=== PATIENT | female | born 1990 | race Caucasian/White ===

== ENCOUNTER 2017-11-20 11:48 | Inpatient (IN) | payer OTHER ==
[2017-11-20 12:22] LABS: ADD MAN DIFF? NO
[2017-11-20 12:26] LABS: BASOPHILS % 0.2 % (0.0-2.0); EOSINOPHILS # 0.2 10^3/ul (0.0-0.5); HEMATOCRIT 35.9 % (37.0-47.0); HEMOGLOBIN 12.2 g/dl (12.0-16.0); LYMPHOCYTES # 2.2 10^3/ul (0.8-2.9); LYMPHOCYTES % 23.1 % (15.0-51.0); MEAN CORPUSCULAR HEMOGLOBIN 30.4 pg (29.0-33.0); MEAN CORPUSCULAR VOLUME 89.5 fl (82.0-101.0); MEAN PLATELET VOLUME 9.9 fl (7.4-10.4); MONOCYTE # 0.7 10^3/ul (0.3-0.9); MONOCYTES % 7.3 % (0.0-11.0); NEUTROPHIL # 6.3 10^3/ul (1.6-7.5); NEUTROPHILS % 67.1 % (39.0-77.0); PLATELET COUNT 221 10^3/UL (140-415); RED BLOOD COUNT 4.01 10^6/ul (4.20-5.40); RED CELL DISTRIBUTION WIDTH 12.8 % (11.5-14.5)
[2017-11-20 12:26] LABS: WHITE BLOOD COUNT 9.3 10^3/ul (4.8-10.8)
[2017-11-20 12:56] LABS: URIC ACID 5.9 mg/dl (3.1-7.9)
[2017-11-20 12:57] LABS: ALANINE AMINOTRANSFERASE 272 IU/L (13-69); ALBUMIN 3.4 g/dl (3.3-4.9); ALBUMIN/GLOBULIN RATIO 1.13; ALKALINE PHOSPHATASE 175 IU/L (42-121); ANION GAP 12 (8-16); ASPARTATE AMINO TRANSFERASE 136 IU/L (15-46); BILIRUBIN,INDIRECT 0.3 mg/dl (0-1.1); BILIRUBIN,TOTAL 0.3 mg/dl (0.2-1.3); BLOOD UREA NITROGEN 8 mg/dl (7-20); CALCIUM 8.7 mg/dl (8.4-10.2); CARBON DIOXIDE 21 mmol/L (21-31); CHLORIDE 110 mmol/L (97-110); CREATININE 0.73 mg/dl (0.44-1.00); GLUCOSE 89 mg/dl (70-220); POTASSIUM 3.7 mmol/L (3.5-5.1); SODIUM 139 mmol/L (135-144); TOTAL PROTEIN 6.4 g/dl (6.1-8.1)
[2017-11-20 12:59] LABS: ADD UMIC YES; UR ASCORBIC ACID NEGATIVE (NEGATIVE); UR BACTERIA FEW /HPF (NONE SEEN); UR BILIRUBIN (Dip) NEGATIVE (NEGATIVE); UR BLOOD (Dip) NEGATIVE (NEGATIVE); UR CLARITY CLEAR (CLEAR); UR COLOR AMBER (YELLOW); UR GLUCOSE (Dip) NEGATIVE (NEGATIVE); UR KETONES (Dip) NEGATIVE (NEGATIVE); UR LEUKOCYTE ESTERASE (Dip) 1+ Leu/ul (NEGATIVE); UR NITRITE (Dip) NEGATIVE (NEGATIVE); UR RBC 10 /HPF (0-5); UR SPECIFIC GRAVITY (Dip) 1.021 (1.003-1.030); UR SQUAMOUS EPITHELIAL CELL FEW /HPF (FEW); UR TOTAL PROTEIN (Dip) 1+ mg/dl (NEGATIVE); UR UROBILINOGEN (Dip) 2+ mg/dL (NEGATIVE); UR WBC 6 /HPF (0-5)
[2017-11-20] MEDS ORDERED: CARBOPROST 250 MCG INJ IM (14:30)
[2017-11-20] MEDS ORDERED: METHYLERGONOVINE 0.2 MG INJ IM (14:30)
[2017-11-20] MEDS ORDERED: OXYTOCIN 30 UNITS/LR 500 ML IV (14:30)
[2017-11-20] MEDS ORDERED: MISOPROSTOL 200 MCG TAB PR (14:30)
[2017-11-20] MEDS ORDERED: LIDOCAINE 1% (MPF) 30 ML INJ INJ (14:30)
[2017-11-20 14:44] LABS: ADD MAN DIFF? NO
[2017-11-20 14:47] LABS: BASOPHILS % 0.3 % (0.0-2.0); EOSINOPHILS # 0.2 10^3/ul (0.0-0.5); EOSINOPHILS % 1.9 % (0.0-7.0); HEMATOCRIT 36.3 % (37.0-47.0); HEMOGLOBIN 12.4 g/dl (12.0-16.0); LYMPHOCYTES # 2.5 10^3/ul (0.8-2.9); LYMPHOCYTES % 26.3 % (15.0-51.0); MEAN CORPUSCULAR HEMOGLOBIN 30.6 pg (29.0-33.0); MEAN CORPUSCULAR HGB CONC 34.2 g/dl (32.0-37.0); MEAN CORPUSCULAR VOLUME 89.6 fl (82.0-101.0); MEAN PLATELET VOLUME 9.8 fl (7.4-10.4); MONOCYTE # 0.8 10^3/ul (0.3-0.9); MONOCYTES % 7.8 % (0.0-11.0); NEUTROPHIL # 6.1 10^3/ul (1.6-7.5); NEUTROPHILS % 63.3 % (39.0-77.0); PLATELET COUNT 217 10^3/UL (140-415); RED BLOOD COUNT 4.05 10^6/ul (4.20-5.40); RED CELL DISTRIBUTION WIDTH 12.9 % (11.5-14.5)
[2017-11-20 14:47] LABS: WHITE BLOOD COUNT 9.6 10^3/ul (4.8-10.8)
[2017-11-20] MEDS ORDERED: MISOPROSTOL 50 MCG CAPSULE VAG ×2 (15:04→16:00)
[2017-11-20 15:05] LABS: INR 0.85; PROTIME 11.7 Sec (11.9-14.9); PT RATIO 0.9
[2017-11-20 15:06] LABS: PARTIAL THROMBOPLASTIN TIME 25.2 Sec (25.0-35.0)
[2017-11-20] MEDS: LACTATED RINGER'S 1,000 ML IV* ×2 (15:06→19:21)
[2017-11-20] MEDS: MISOPROSTOL 100 MCG TAB VAG (15:21)
[2017-11-20] MEDS: AMPICILLIN 2 GM/NS (PMX) 100 ML IV (15:21)
[2017-11-20 15:28] LABS: RAPID PLASMA REAGIN NONREACTIVE (NR)
[2017-11-20 15:35] LABS: AMPHETAMINE/METHAMPHETAMINE Negative (NEGATIVE); BARBITURATES Negative (NEGATIVE); BENZODIAZEPINES Negative (NEGATIVE); CANNABINOIDS Negative (NEGATIVE); COCAINE Negative (NEGATIVE); OPIATES Negative (NEGATIVE)
[2017-11-20 15:38] LABS: HEPATITIS B SURFACE ANTIGEN NEGATIVE (NEGATIVE)
[2017-11-20] MEDS ORDERED: AMPICILLIN 1 GM/NS (PMX) 50 ML IV (17:30)
[2017-11-20] MEDS ORDERED: MISOPROSTOL 100 MCG TAB PO (19:00)
[2017-11-20] MEDS ORDERED: DIPHENHYDRAMINE 50 MG CAP PO (19:00)
[2017-11-20] MEDS: MISOPROSTOL 25 MCG CAPSULE PO (19:53)
[2017-11-21] MEDS ORDERED: CALCIUM CARBONATE 500 MG CHEW TAB PO (03:00)
[2017-11-21] MEDS: LACTATED RINGER'S 1,000 ML IV* ×4 (03:25→21:25)
[2017-11-21] MEDS: CALCIUM CARBONATE 500 MG CHEW TAB PO (03:25)
[2017-11-21] MEDS: MISOPROSTOL 25 MCG CAPSULE PO (04:18)
[2017-11-21] MEDS ORDERED: OXYTOCIN 30 UNITS/LR 500 ML IV (09:30)
[2017-11-21] MEDS: OXYTOCIN 30 UNITS/LR 500 ML IV (10:25)
[2017-11-21] MEDS: BUTORPHANOL 2 MG INJ IV ×2 (16:22→19:32)
[2017-11-21] MEDS ORDERED: FENTAnyl 2MCG/ML-ROPIV 0.2% 100 ML (21:07)
[2017-11-21] MEDS ORDERED: TRIMETHOBENZAMIDE 100 MG/ML VIAL IM (21:30)
[2017-11-21] MEDS ORDERED: DIPHENHYDRAMINE 50 MG INJ IV (21:30)
[2017-11-21] MEDS ORDERED: NALOXONE (0.4 MG/ML) INJ IV (21:30)
[2017-11-21] MEDS ORDERED: ONDANSETRON 4 MG INJ IV (21:30)
[2017-11-22] MEDS: LACTATED RINGER'S 1,000 ML IV* ×3 (01:11→10:51)
[2017-11-22] MEDS: FENTAnyl 2MCG/ML-ROPIV 0.2% 100 ML BAG EPI (02:37)
[2017-11-22] MEDS: OXYTOCIN 30 UNITS/LR 500 ML IV ×2 (04:43)
[2017-11-22] MEDS ORDERED: WITCH HAZEL/GLYCERIN PAD PR (07:00)
[2017-11-22] MEDS ORDERED: DIBUCAINE 1% 30 GM OINT PR (07:00)
[2017-11-22] MEDS ORDERED: HYDROCODONE/APAP (5/325) TAB PO (07:00)
[2017-11-22] MEDS ORDERED: CARBOPROST 250 MCG INJ IM (07:00)
[2017-11-22] MEDS ORDERED: MISOPROSTOL 200 MCG TAB PR (07:00)
[2017-11-22] MEDS ORDERED: OXYTOCIN 30 UNITS/LR 500 ML IV (07:00)
[2017-11-22] MEDS ORDERED: METHYLERGONOVINE 0.2 MG INJ IM (07:00)
[2017-11-22] MEDS ORDERED: ACETAMINOPHEN 325 MG TAB PO (07:00)
[2017-11-22] MEDS: LANOLIN 7 GM TUBE TOP (07:57)
[2017-11-22] MEDS: BENZOCAINE 20% 56 ML SPRAY TOP (07:57)
[2017-11-22] MEDS: IBUPROFEN 600 MG TAB PO ×3 (07:57→17:40)
[2017-11-22] MEDS: SENNA/DOCUSATE NA (8.6MG/50MG) TAB PO ×4 (13:42→21:34)
[2017-11-23] MEDS: IBUPROFEN 600 MG TAB PO ×5 (00:13→23:56)
[2017-11-23 08:29] LABS: ADD MAN DIFF? NO
[2017-11-23 08:33] LABS: WHITE BLOOD COUNT 12.4 10^3/ul (4.8-10.8)
[2017-11-23 08:33] LABS: BASOPHILS % 0.2 % (0.0-2.0); EOSINOPHILS # 0.4 10^3/ul (0.0-0.5); HEMATOCRIT 33.9 % (37.0-47.0); HEMOGLOBIN 11.2 g/dl (12.0-16.0); LYMPHOCYTES # 3.2 10^3/ul (0.8-2.9); LYMPHOCYTES % 25.9 % (15.0-51.0); MEAN CORPUSCULAR HEMOGLOBIN 30.4 pg (29.0-33.0); MEAN CORPUSCULAR VOLUME 92.1 fl (82.0-101.0); MEAN PLATELET VOLUME 10.3 fl (7.4-10.4); MONOCYTE # 0.9 10^3/ul (0.3-0.9); MONOCYTES % 6.9 % (0.0-11.0); NEUTROPHIL # 7.9 10^3/ul (1.6-7.5); NEUTROPHILS % 63.7 % (39.0-77.0); PLATELET COUNT 227 10^3/UL (140-415); RED BLOOD COUNT 3.68 10^6/ul (4.20-5.40)
[2017-11-23] MEDS: SENNA/DOCUSATE NA (8.6MG/50MG) TAB PO ×2 (09:22→21:18)
[2017-11-24] MEDS: IBUPROFEN 600 MG TAB PO ×3 (05:44→17:40)
[2017-11-24] MEDS: SENNA/DOCUSATE NA (8.6MG/50MG) TAB PO (09:00)
[2017-11-24] MEDS: DIPHTH/TET/ACEL PERTUSS (ADULT) 0.5 ML VIAL IM* (09:05)
== END 2017-11-24 21:30 | disposition home or self-care (01) | DRG 775 ==
LOC: OBT 11:48 → PP1 11-22 06:44 → L-D 11:50 → OBT 13:24 → L-D 13:24
PROC: 10E0XZZ Delivery of Products of Conception, External Approach (ICD-10-PCS; principal; 2017-11-22)
PROC: 0KQM0ZZ Repair Perineum Muscle, Open Approach (ICD-10-PCS; 2017-11-22)
DX: O69.81X0 Labor and delivery complicated by cord around neck, without compression, not applicable or unspecified (principal); O70.1 Second degree perineal laceration during delivery; Z3A.37 37 weeks gestation of pregnancy; Z37.0 Single live birth
CPT/HCPCS: 62319; 76815; 76818; 80053; 80307; 81001; 84560; 85025; 85610; 85730; 86592; 86850; 86900; 86901; 87340; 90715